=== PATIENT | female | born 1945 | race Caucasian/White ===

== ENCOUNTER 2017-08-05 07:20 | Inpatient (IN) | payer OTHER, MEDICAID ==
[~2017-08-05] VITALS: Ht 157.5 cm; Wt 69.9 kg
[2017-08-05] MEDS ORDERED: CELECOXIB 200 MG CAPSULE ONE (07:58)
[2017-08-05] MEDS ORDERED: ACETAMINOPHEN 500 MG TABLET ONE (07:58)
[2017-08-05] MEDS ORDERED: CEFAZOLIN 2 GM IVPB PREMIX 50 ML IV ONE ×2 (07:58→08:00)
[2017-08-05] MEDS ORDERED: GABAPENTIN 300 MG CAPSULE ONE (07:59)
[2017-08-05] MEDS ORDERED: TRANEXAMIC ACID 650 MG TABLET ONE (07:59)
[2017-08-05] MEDS ORDERED: oxyCODONE HCL 10 MG TAB.ER.12H PO ONE ×2 (07:59→08:00)
[2017-08-05] MEDS ORDERED: ACETAMINOPHEN 500 MG TABLET PO ONE (08:00)
[2017-08-05] MEDS ORDERED: NACL 0.9% 1,000 ML IV ONE (08:00)
[2017-08-05] MEDS ORDERED: TRANEXAMIC ACID 650 MG TABLET PO ONE (08:00)
[2017-08-05] MEDS ORDERED: GABAPENTIN 300 MG CAPSULE PO ONE (08:00)
[2017-08-05] MEDS ORDERED: CELECOXIB 200 MG CAPSULE PO ONE (08:00)
[2017-08-05] MEDS ORDERED: LOSA25TA3 PO (08:37)
[2017-08-05] MEDS ORDERED: LIP40 PO (08:37)
[2017-08-05] MEDS ORDERED: GLU850 PO (08:37)
[2017-08-05] MEDS ORDERED: GLIP10TA11 PO (08:37)
[2017-08-05] MEDS ORDERED: D5LR 1,000 ML IV SCH (10:25)
[2017-08-05] MEDS ORDERED: KETOROLAC TROMETHAMINE 15 MG VIAL IVP PRN (10:30)
[2017-08-05] MEDS ORDERED: oxyCODONE HCL 5 MG TABLET PO PRN ×2 (10:30)
[2017-08-05] MEDS ORDERED: ONDANSETRON HCL 4 MG/2 ML VIAL IVP PRN (10:30)
[2017-08-05] MEDS ORDERED: MORPHINE 4 MG/ML INJ. SYRINGE IVP PRN ×4 (10:30→11:30)
[2017-08-05] MEDS ORDERED: SENNOSIDES 8.6 MG TABLET PO PRN (10:30)
[2017-08-05] MEDS ORDERED: DIPHENHYDRAMINE HCL 25 MG CAPSULE PO PRN (10:30)
[2017-08-05] MEDS ORDERED: PROMETHAZINE HCL 25 MG/ML AMP IVP PRN (10:30)
[2017-08-05] MEDS ORDERED: POLYMYXIN 500,000/BACIT.10,000 UNITS in NS IRR 1 L IR ONE ×2 (10:47→10:48)
[2017-08-05] MEDS ORDERED: LR 1,000 ML IV SCH (11:23)
[2017-08-05] MEDS ORDERED: ROPIVACAINE 0.2% 100 ML INJ SCH (11:23)
[2017-08-05] MEDS ORDERED: MEPERIDINE HCL/PF 25 MG/ML DISP.SYRIN IVP PRN (11:30)
[2017-08-05] MEDS ORDERED: HYDROcodone/ACETAMIN 10-325 MG TAB PO PRN ×2 (11:30)
[2017-08-05 14:21] VITALS: BP_SYST 131
[2017-08-05 16:00] VITALS: BP_SYST 121
[2017-08-05] MEDS: LR 1,000 ML IV SCH (16:15)
[2017-08-05] MEDS: CEFAZOLIN 1 GM IVPB PREMIX 50 ML IV SCH ×2 (16:15→21:22)
[2017-08-05] MEDS: ACETAMINOPHEN 500 MG TABLET PO SCH ×2 (16:21→21:24)
[2017-08-05 17:53] VITALS: BP_SYST 121
[2017-08-05] MEDS ORDERED: DEXTROSE 50% JECT 50 ML DISP.SYRIN IVP PRN (18:15)
[2017-08-05] MEDS: INSULIN REGULAR, HUMAN 100 UNITS/ML, 10 ML VIAL (novoLIN R) SUBCUT PRN ×2 (18:53→23:14)
[2017-08-05 20:00] VITALS: BP_SYST 105
[2017-08-05] MEDS: GABAPENTIN 300 MG CAPSULE PO SCH (21:23)
[2017-08-05] MEDS: CELECOXIB 200 MG CAPSULE PO SCH (21:23)
[2017-08-06] MEDS: LR 1,000 ML IV SCH (01:10)
[2017-08-06 02:16] VITALS: BP_SYST 107
[2017-08-06] MEDS: CEFAZOLIN 1 GM IVPB PREMIX 50 ML IV SCH (05:22)
[2017-08-06 06:08] LABS: EOSINOPHILS % (AUTO) 0.2 % (0.0-4.0); HEMATOCRIT 30.4 % (36-48); HEMOGLOBIN 10.2 g/dL (12.0-16.0); LYMPHOCYTES # (AUTO) 1.8 K/uL (1.0-5.5); LYMPHOCYTES % (AUTO) 12.3 % (20.5-51.5); MEAN CORPUSCULAR HEMOGLOBIN 28 pg (27-31); MEAN CORPUSCULAR HGB CONC 34 % (32-36); MEAN CORPUSCULAR VOLUME 82 fL (79.0-98.0); MONOCYTES # (AUTO) 0.9 K/uL (0.0-1.0); MONOCYTES % (AUTO) 6.1 % (1.7-9.3); NEUTROPHILS # (AUTO) 11.7 K/uL (1.8-7.7); NEUTROPHILS % (AUTO) 81.4 % (40.0-70.0); PLATELET COUNT (AUTO) 359 K/uL (130-430); RED BLOOD CELL COUNT(AUTO) 3.71 MIL/uL (4.2-6.2); RED CELL DISTRIBUTION WIDTH 12.8 % (9.0-15.0); WHITE BLOOD COUNT (AUTO) 14.4 K/uL (4.8-10.8)
[2017-08-06 06:25] LABS: ANION GAP 4 (5-15); CALCIUM 8.5 mg/dL (8.4-11.0); CHLORIDE 107 mmol/L (98-107); CREATININE 0.86 mg/dL (0.55-1.30); GLUCOSE 109 mg/dL (70-99); POTASSIUM 4.5 mmol/L (3.5-5.1); SODIUM SERUM 138 mmol/L (136-145); UREA NITROGEN, BLOOD 19 mg/dL (8-21)
[2017-08-06 08:00] VITALS: BP_SYST 124
[2017-08-06] MEDS: ATORVASTATIN 20 MG TABLET PO SCH (08:10)
[2017-08-06] MEDS: CELECOXIB 200 MG CAPSULE PO SCH ×2 (08:10→21:00)
[2017-08-06] MEDS: ACETAMINOPHEN 500 MG TABLET PO SCH ×3 (08:11→21:00)
[2017-08-06] MEDS: LOSARTAN POTASSIUM 25 MG TABLET PO SCH (08:11)
[2017-08-06] MEDS: RIVAROXABAN 10 MG TABLET PO SCH (11:24)
[2017-08-06 12:10] VITALS: BP_SYST 121
[2017-08-06 16:06] VITALS: BP_SYST 110
[2017-08-06 20:00] VITALS: BP_SYST 117
[2017-08-06] MEDS: GABAPENTIN 300 MG CAPSULE PO SCH (21:00)
[2017-08-07] MEDS: INSULIN REGULAR, HUMAN 100 UNITS/ML, 10 ML VIAL (novoLIN R) SUBCUT PRN ×2 (00:04→12:06)
[2017-08-07] MEDS: LR 1,000 ML IV SCH ×2 (00:39→08:42)
[2017-08-07 02:38] VITALS: BP_SYST 105
[2017-08-07 06:31] LABS: BASOPHILS # (AUTO) 0.1 K/uL (0.0-0.2); BASOPHILS % (AUTO) 0.6 % (0.0-2.0); EOSINOPHILS # (AUTO) 0.2 K/uL (0.0-0.4); EOSINOPHILS % (AUTO) 2.2 % (0.0-4.0); HEMATOCRIT 26.9 % (36-48); HEMOGLOBIN 8.8 g/dL (12.0-16.0); LYMPHOCYTES # (AUTO) 2.9 K/uL (1.0-5.5); LYMPHOCYTES % (AUTO) 26.5 % (20.5-51.5); MEAN CORPUSCULAR HEMOGLOBIN 27 pg (27-31); MEAN CORPUSCULAR HGB CONC 33 % (32-36); MEAN CORPUSCULAR VOLUME 82 fL (79.0-98.0); MONOCYTES % (AUTO) 8.8 % (1.7-9.3); NEUTROPHILS # (AUTO) 6.7 K/uL (1.8-7.7); NEUTROPHILS % (AUTO) 61.9 % (40.0-70.0); PLATELET COUNT (AUTO) 312 K/uL (130-430); RED BLOOD CELL COUNT(AUTO) 3.28 MIL/uL (4.2-6.2); RED CELL DISTRIBUTION WIDTH 13.4 % (9.0-15.0); WHITE BLOOD COUNT (AUTO) 10.9 K/uL (4.8-10.8)
[2017-08-07 06:52] LABS: ANION GAP 3 (5-15); CHLORIDE 111 mmol/L (98-107); CREATININE 0.72 mg/dL (0.55-1.30); GLUCOSE 78 mg/dL (70-99); POTASSIUM 3.9 mmol/L (3.5-5.1); SODIUM SERUM 143 mmol/L (136-145); UREA NITROGEN, BLOOD 15 mg/dL (8-21)
[2017-08-07 08:00] VITALS: BP_SYST 145
[2017-08-07] MEDS: ROPIVACAINE 0.2% 550 ML INJ SCH ×3 (08:41→10:25)
[2017-08-07] MEDS: CELECOXIB 200 MG CAPSULE PO SCH (08:43)
[2017-08-07] MEDS: ATORVASTATIN 20 MG TABLET PO SCH (08:43)
[2017-08-07] MEDS: LOSARTAN POTASSIUM 25 MG TABLET PO SCH (08:43)
[2017-08-07] MEDS: ACETAMINOPHEN 500 MG TABLET PO SCH (08:44)
[2017-08-07] MEDS: RIVAROXABAN 10 MG TABLET PO SCH (10:48)
[2017-08-07 12:03] VITALS: BP_SYST 148
[2017-08-07 12:25] VITALS: BP_SYST 142
[2017-08-07 16:44] VITALS: BP_SYST 103
== END 2017-08-07 13:10 | disposition home health service (06) | DRG 470 ==
LOC: SMU 07:20 → STU 22:54 → SMU 08-06 11:04
PROVIDERS: ADMIT Orthopaedic Surgery; ATTEND Orthopaedic Surgery
PROC: 3E0T3BZ Introduction of Anesthetic Agent into Peripheral Nerves and Plexi, Percutaneous Approach (ICD-10-PCS; 2017-08-05)
PROC: 0SRC0J9 Replacement of Right Knee Joint with Synthetic Substitute, Cemented, Open Approach (ICD-10-PCS; principal; 2017-08-05 09:45)
DX: M17.11 Unilateral primary osteoarthritis, right knee (principal); E11.9 Type 2 diabetes mellitus without complications; I10 Essential (primary) hypertension; Z79.01 Long term (current) use of anticoagulants; Z79.899 Other long term (current) drug therapy
CPT/HCPCS: 36415; 80048; 82962; 85025; 87081; 88305; 88311; 97039; 97110-GP; 97116-GP; 97530-GP; J0690; J1815; J2795; J7120